=== PATIENT | female | born 1990 | race Caucasian/White ===

== ENCOUNTER 2016-09-23 19:05 | Emergency (ER) | payer OTHER ==
[2016-09-23 21:30] VITALS: BP 124/65
== END 2016-09-23 21:30 | disposition home or self-care (01) ==
LOC: ED 19:05
DX: H10.9 Unspecified conjunctivitis (principal); R03.0 Elevated blood-pressure reading, without diagnosis of hypertension; Z88.8 Allergy status to other drugs, medicaments and biological substances